=== PATIENT | male | born 1975 | race Hispanic/Latino ===

== ENCOUNTER 2017-05-12 18:24 | Emergency (ER) | payer SELFPAY ==
[~2017-05-12] VITALS: Ht 165.1 cm; Wt 72.0 kg
[~2017-05-12 18:24] MED LIST: TRAMADOL HCL50 MG PO
[2017-05-12 21:13] VITALS: BP 159/77
== END 2017-05-12 21:14 | DRG 125 ==
LOC: ED 18:24
DX: S05.92XA Unspecified injury of left eye and orbit, initial encounter (principal); S02.82XA Fracture of other specified skull and facial bones, left side, initial encounter for closed fracture; S01.112A Laceration without foreign body of left eyelid and periocular area, initial encounter; W22.8XXA Striking against or struck by other objects, initial encounter; Y93.H3 Activity, building and construction; Y92.89 Other specified places as the place of occurrence of the external cause; R22.0 Localized swelling, mass and lump, head

== ENCOUNTER 2022-02-26 14:30 | Emergency (ER) | payer SELFPAY ==
[~2022-02-26] VITALS: Ht 165.1 cm; Wt 72.7 kg
[2022-02-26] MEDS ORDERED: PREDNISONE50 MG PO (15:05)
[2022-02-26] MEDS ORDERED: BENADRYL25 M1 PO (15:05)
[2022-02-26] MEDS ORDERED: CIMETIDINE400 M1 PO (15:05)
[2022-02-26 15:30] VITALS: BP 133/91
[2022-02-27] MEDS ORDERED: PROMETHAZINE HY25 M1 PO (22:21)
== END 2022-02-26 16:01 | disposition home or self-care (01) | DRG 607 ==
LOC: ED 14:30
DX: L50.9 Urticaria, unspecified (principal)

== ENCOUNTER 2022-02-27 21:03 | Emergency (ER) | payer SELFPAY ==
[~2022-02-27] VITALS: Ht 165.1 cm; Wt 86.0 kg
[~2022-02-27 21:03] MED LIST changes: +BENADRYL25 M1 PO; +CIMETIDINE400 M1 PO; +PREDNISONE50 MG PO
[2022-02-27 21:23] VITALS: BP 140/92
[2022-02-27 21:30] VITALS: BP 147/88
[2022-02-27 21:46] LABS: HEMOGLOBIN 16.4 g/dl (14.0-18.0); IMMATURE GRANULOCYTES 0.3 % (0.0-5.0); MEAN CELL VOLUME 85.5 fL CALC (80.0-100.0); MEAN CORPUSCULAR HGB 30.5 pG CALC (26.0-32.0); MEAN CORPUSCULAR HGB CONC 35.7 g/dL CAL (32.0-36.0); NEUT# 12.87 thou/uL (1.82-7.42); RED BLOOD COUNT 5.38 mill/uL (4.70-6.10)
[2022-02-27 21:57] LABS: ALBUMIN 4.7 g/dL (3.2-5.0); ALKALINE PHOSPHATASE 46 u/l (38-126); ANION GAP 14 (6-22 (CALC)); BILIRUBIN, TOTAL 0.8 mg/dL (0.0-1.4); BUN 21 mg/dL (9-20); BUN/CREATININE RATIO 26 (12-20 (CALC)); CARBON DIOXIDE 24 mmol/l (22-30); CHLORIDE 99 mmol/l (95-108); CREATININE 0.8 mg/dL (0.7-1.3); GFR FOR AFR.AMER. > 60 ML/MIN (>=60 (CALC)); GFR OTHER RACES > 60 ML/MIN (>=60 (CALC)); LIPASE 60 u/l (23-300); POTASSIUM 4.7 mmol/l (3.5-5.1); SGOT/AST 54 u/l (17-59); SODIUM 133 mmol/l (137-146); TOTAL PROTEIN 7.2 g/dL (6.3-8.2)
[2022-02-27 22:00] VITALS: BP 144/86
[2022-02-27 22:15] VITALS: BP 147/83
[2022-02-27] MEDS ORDERED: PROMETHAZINE HY25 M1 PO (22:21)
[2022-02-27 22:30] VITALS: BP 147/83
== END 2022-02-27 23:05 | disposition home or self-care (01) | DRG 392 ==
LOC: ED 21:03
PROVIDERS: Family Medicine
DX: R11.2 Nausea with vomiting, unspecified (principal)